=== PATIENT | female | born 1970 | race Caucasian/White ===

== ENCOUNTER 2017-03-30 14:24 | Emergency (ER) | payer MEDICAID ==
--- NOTE | 2017-03-30 14:37 | Emergency Department Record ---
History of Present Illness - General Chief Complaint: Knee injury Stated Complaint: RT KNEE INJURY Time Seen by Provider: 03/30/17 14:31 Source: Patient, Old records reviewed Limitations: No limitations - History of Present Illness Initial Comments: 46 yo female presents with a right knee njury and right leg swelling. The injury occurred yesterday at a softball game. She was running home and the knee gave out on her. She has pain and swelling. She is weight bearing but with pain. She has prior history of bilateral knee surgery. No history of DVT. MD Complaint: Knee injury -: Days(s) (1) Injury: Knee: Right Type of Injury: Unknown Place: Other (softball field) Improves With: Immobilization Worsens With: Movement, Palpation Context: Running Associated Symptoms: Swelling, Able to partially bear weight - Related Data Previous Rx's Medication Instructions Recorded Hydrocodone/Acetaminophen [Osborn 1 each PO Q8H PRN #15 tablet 03/30/17 5-325 Tablet] Allergies Allergy/AdvReac Type Severity Reaction Status Date / Time Pyrazoles Allergy Unknown HYPERSENSIT Verified 03/30/17 14:41 IVITY Salicylates * Allergy Unknown HYPERSENSIT Verified 03/30/17 14:41 IVITY aspirin AdvReac Unknown NAUSEA Verified 03/30/17 14:41 Review of Systems Constitutional: Denies: Chills, Fever, Malaise, Weakness Eyes: Denies: Eye discharge ENT: Denies: Congestion, Dental pain, Throat pain Respiratory: Denies: Cough, Dyspnea, Hemoptysis, Stridor, Wheezes Cardiovascular: Denies: Chest pain, Palpitations, Syncope Endocrine: Denies: Fatigue Gastrointestinal: Denies: Abdominal pain, Diarrhea, Nausea, Vomiting Genitourinary: Denies: Dysuria, Urgency Musculoskeletal: Reports: As per HPI, Arthralgia Skin: Reports: As per HPI, Bruising Neurological: Denies: Confusion, Headache, Numbness, Tingling, Tremors, Vertigo , Weakness Psychiatric: Denies: Anxiety Hematological/Lymphatic: Denies: Blood Clots, Easy bleeding, Easy bruising, Swollen glands Physical Exam - General General Appearance: Alert, Oriented x3, Cooperative, No acute distress Limitations: No limitations - Head Head exam: Atraumatic, Normal inspection - Eye Eye exam: Normal appearance. negative: Conjunctival injection, Periorbital swelling - ENT ENT exam: Normal exam, Mucous membranes moist Ear exam: Normal external inspection Nasal Exam: Normal inspection - Neck Neck exam: Normal inspection - Cardiovascular Cardiovascular Exam: Regular rate, Normal rhythm, Normal heart sounds Peripheral Pulses: 2+: Dorsalis Pedis (R) - GI/Abdominal GI/Abdominal exam: Soft. negative: Tenderness - Rectal Rectal exam: Deferred - exam: Deferred - Extremities Extremities exam: Joint swelling, Normal capillary refill, Tenderness. negative : Normal inspection, Full ROM Image of Full Body: 1 - mild knee swelling, tender medial and posterior, bruising anterior and distal lower leg, intact sensation and pulses - Back Back exam: Reports: Normal inspection. Denies: CVA tenderness (R), CVA tenderness (L) - Neurological Neurological exam: Alert, Oriented X3. negative: Motor sensory deficit - Psychiatric Psychiatric exam: Normal affect, Normal mood - Skin Skin exam: Other (bruising) Course - Reevaluation(s) Reevaluation #1: The XR and the venous doppler were reviewed My prelim read is no acute bony injury, doppler is negative for DVT She has crutches at home She will be given a knee immobilzer for support and comfort She has an orthopedist she has seen recent We discussed home care, follow up and further testing if pain continues 03/30/17 16:04 Reevaluation #2: Final read no fracture, No DVT The patient was DC'd home with knee immobilizer and she has crutches She was given home care instructions and recommended to follow up with her ortho if calix persists next week 03/30/17 16:27 Disposition Disposition: Discharge Clinical Impression: Knee sprain Qualifiers: Encounter type: sequela Involved ligament of knee: unspecified ligament Laterality: right Qualified Code(s): S83.91XS - Sprain of unspecified site of right knee, sequela Disposition: Home, Self-Care Condition: (1) Good Instructions: Knee Sprain (ED) Additional Instructions: Ice and elevate Use the crutches and splint for support and comfort. Do not drive with the splint on you leg. Call your doctor for close follow up of your injury If pain continues you may need further testing such as MRI or referral if the pain continues to rule out ligament/cartilage injury Prescriptions: Hydrocodone/Acetaminophen [Osborn 5-325 Tablet] 1 each PO Q8H PRN #15 tablet PRN Reason: Pain - General Forms: Patient Portal Access Time of Disposition: 16:06 Quality - Quality Measures Quality Measures: N/A - Blood Pressure Screening Does Patient Have Any of the Following: No Blood Pressure Classification: Normal BP Reading Systolic Measurement: 109 Diastolic Measurement: 61 Screening for High Blood Pressure: < Normal BP, F/U Not Required > [G8783]
[2017-03-30] MEDS ORDERED: IBUPROFEN 600 MG TABLET PO ONE (14:47)
--- NOTE | 2017-03-31 07:22 | US VENOUS DOPPLER REPORT ---
EXAM: EMERGENCY RIGHT LOWER EXTREMITY VENOUS DOPPLER ULTRASOUND HISTORY: SWELLING AND POPLITEAL PAIN, FELL LAST NIGHT WHILE PLAYING SOFTBALL WITH RIGHT LEG PAIN AND SWELLING. TECHNIQUE: Venous Doppler ultrasound of the right lower extremity was performed utilizing color flow and spectral analysis Doppler. Venous anatomy of the thigh and calf was supplemented with compression and flow augmentation maneuvers. Comparison: No prior venous Doppler ultrasound of the right lower extremity with which to compare. FINDINGS: The venous Doppler ultrasound of the right lower extremity is negative. No DVT evident. Flow was seen throughout the venous anatomy from the inguinal region down through the calf. Flow augmentation and compression was evident in the venous anatomy of the thigh and popliteal region as well. IMPRESSION: NEGATIVE VENOUS DOPPLER ULTRASOUND OF THE RIGHT LOWER EXTREMITY WITH NO DVT EVIDENT. JOB NUMBER: [id number] MTDD
--- NOTE | 2017-03-31 07:25 | RADIOLOGY REPORT ---
EXAM: RIGHT KNEE HISTORY: PATIENT FELL WITH RIGHT KNEE PAIN. TECHNIQUE: Four views of the right knee were obtained. Comparison: No prior right knee study, but comparison is made with the right lower leg study which partially includes the right knee dated 04/15/14. Encounter: Initial. FINDINGS: No definite fracture or dislocation of the right knee identified. There may be a joint effusion present, however. IMPRESSION: 1. POSSIBLE JOINT EFFUSION. 2. NO FRACTURE OF THE RIGHT KNEE IDENTIFIED. JOB NUMBER: [id number] [facility]
== END 2017-03-30 16:23 | disposition home or self-care (01) ==
LOC: ER 14:24
DX: S83.91XA Sprain of unspecified site of right knee, initial encounter (principal); M25.561 Pain in right knee; X50.9XXA Other and unspecified overexertion or strenuous movements or postures, initial encounter; Y93.64 Activity, baseball
CPT/HCPCS: 99283; 99284

== ENCOUNTER 2019-07-06 12:16 | Emergency (ER) | payer MEDICAID ==
[2019-07-06] MEDS ORDERED: ASPIRIN 81 MG CHEWABLE TABLET PO ONE (12:37)
[2019-07-06] MEDS ORDERED: AL HYDROX/MAG HYDROX 30ML UD PO ONE (12:38)
[2019-07-06] MEDS: NITROGLYCERIN 0.4MG SL TABLET #25 BTL SL PRN ×2 (12:46→12:52)
[2019-07-06 12:56] LABS: ABSOLUTE NEUTROPHIL COUNT 7.15; BASO % 0.2 % (0-6); EOS % 0.8 % (0-6); GRAN % 69.8 % (47-80); HEMATOCRIT 47.6 % (35.0-47.0); HEMOGLOBIN 16.4 gm/dl (11.6-16.0); LYMPH % 22.8 % (16-45); MEAN CELL VOLUME 92.6 fl (81-97); MEAN CORPUSCULAR HEMOGLOBIN 31.9 pg (27-33); MEAN CORPUSCULAR HGB CONC 34.5 g/dl (32-36); MEAN PLATELET VOLUME 11.3 fl (7.4-10.4); MONO % 6.4 % (0-9); PLATELET COUNT 195 K/uL (130-400); RED BLOOD COUNT 5.14 M/uL (3.80-5.40); WHITE BLOOD COUNT W/O DIFF 10.2 K/uL (4.2-12.2)
--- NOTE | 2019-07-06 13:05 | Emergency Department Record ---
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 it is squeezing 01/16. she has never had anything like this. she has nausea but no sob and no radiation. MD Complaint: Chest pain Onset/Timin -: Hour(s) Onset: During rest Pain Location: Epigastric Severity scale (1-10): 7 Quality: Heaviness Consistency: Constant Improves With: Nothing Worsens With: Nothing Anginal Symptoms: Nausea Treatments Prior to Arrival: None - Related Data Allergies Allergy/AdvReac Type Severity Reaction Status Date / Time Pyrazoles Allergy Unknown HYPERSENSIT Verified 03/30/17 14:41 IVITY Salicylates * Allergy Unknown HYPERSENSIT Verified 03/30/17 14:41 IVITY aspirin AdvReac Unknown NAUSEA Verified 03/30/17 14:41 Travel Screening - Travel/Exposure Within Last 30 Days Have you traveled within the last 30 days?: No Review of Systems Reviewed: No additional complaints except as noted below Constitutional: Reports: As per HPI. Denies: Chills, Fever, Malaise, Night sweats, Weakness, Weight change Eyes: Reports: As per HPI. Denies: Eye discharge, Eye pain, Photophobia, Vision change ENT: Reports: As per HPI. Denies: Congestion, Dental pain, Ear pain, Epistaxis, Hearing loss, Throat pain Respiratory: Reports: As per HPI. Denies: Cough, Dyspnea, Hemoptysis, Stridor, Wheezes Cardiovascular: Reports: As per HPI, Chest pain. Denies: Arrhythmia, Dyspnea on exertion, Edema, Murmurs, Orthopnea, Palpitations, Paroxysmal nocturnal dyspnea, Rheumatic Fever, Syncope Endocrine: Reports: As per HPI. Denies: Fatigue, Heat or cold intolerance, Polydipsia, Polyuria Gastrointestinal: Reports: As per HPI, Nausea. Denies: Abdominal pain, Constipation, Diarrhea, Hematemesis, Hematochezia, Melena, Vomiting Genitourinary: Reports: As per HPI. Denies: Abnormal menses, Discharge, Dyspareunia, Dysuria, Frequency, Hematuria, Incontinence, Retention, Urgency Musculoskeletal: Reports: As per HPI. Denies: Arthralgia, Back pain, Gout, Sarahy int swelling, Myalgia, Neck pain Skin: Reports: As per HPI. Denies: Bruising, Change in color, Change in hair/nails, Lesions, Pruritus, Rash Neurological: Reports: As per HPI. Denies: Abnormal gait, Confusion, Headache, Numbness, Paresthesias, Seizure, Tingling, Tremors, Vertigo, Weakness Psychiatric: Reports: As per HPI. Denies: Anxiety, Auditory hallucinations, Depression, Homicidal thoughts, Suicidal thoughts, Visual hallucinations Hematological/Lymphatic: Reports: As per HPI. Denies: Anemia, Blood Clots, Easy bleeding, Easy bruising, Swollen glands Past Medical History - SOCIAL HISTORY Smoking Status: Current every day smoker - RESPIRATORY Hx Respiratory Disorders: No - CARDIOVASCULAR Hx Cardio Disorders: No - NEURO Hx Neuro Disorders: No - GI Hx GI Disorders: No - Hx Genitourinary Disorders: No - ENDOCRINE Hx Endocrine Disorders: No - MUSCULOSKELETAL Hx Musculoskeletal Disorders: Yes Hx Arthritis: Yes - PSYCH Hx Psych Problems: Yes Hx Anxiety: Yes Hx Depression: Yes - HEMATOLOGY/ONCOLOGY Hx Hematology/Oncology Disorders: No Family Medical History Any Significant Family History?: Yes Hx Cancer: Father, Mother Hx Dementia: Mother Hx Depression: Mother Hx Kidney Disease: Mother Physical Exam - General General Appearance: Alert, Oriented x3, Cooperative, Mild distress - Head Head exam: Normal inspection - Eye Eye exam: Normal appearance, PERRL, EOMI Pupils: Normal accommodation - ENT ENT exam: Normal exam, Mucous membranes moist, Normal external ear exam, Normal orophraynx Ear exam: Normal external inspection. negative: External canal tenderness Nasal Exam: Normal inspection. negative: Discharge, Sinus tenderness Mouth exam: Normal external inspection, Tongue normal Teeth exam: Normal inspection. negative: Dental caries Throat exam: Normal inspection. negative: Tonsillar erythema, Tonsillar exudate - Neck Neck exam: Normal inspection, Full ROM. negative: Tenderness - Respiratory Respiratory exam: Normal lung sounds bilaterally. negative: Respiratory distress - Cardiovascular Cardiovascular Exam: Regular rate, Normal rhythm, Normal heart sounds - GI/Abdominal GI/Abdominal exam: Soft, Normal bowel sounds. negative: Tenderness - Rectal Rectal exam: Deferred - exam: Deferred - Extremities Extremities exam: Normal inspection, Full ROM, Normal capillary refill. negative: Tenderness - Back Back exam: Reports: Normal inspection, Full ROM. Denies: Muscle spasm, Rash noted, Tenderness - Neurological Neurological exam: Alert, CN II-XII intact, Normal gait, Oriented X3 - Psychiatric Psychiatric exam: Normal affect, Normal mood - Skin Skin exam: Dry, Intact, Normal color, Warm Course Vital Signs 07/06/19 12:18 Temperature 97.7 F Pulse Rate 79 Respiratory 20 Rate Blood Pressure 106/78 Pulse Ox 100 - Reevaluation(s) Reevaluation #1: 07/06/19 17:33 pts 2nd enzyme is negative. pressure improved. Medical Decision Making - Lab Data Result diagrams: 07/06/19 12:25 07/06/19 12:25 Lab Results 07/06/19 Range/Units 12:25 WBC 10.2 (4.2-12.2) K/uL RBC 5.14 (3.80-5.40) M/uL Hgb 16.4 H (11.6-16.0) gm/dl Hct 47.6 H (35.0-47.0) % MCV 92.6 (81-97) fl MCH 31.9 (27-33) pg MCHC 34.5 (32-36) g/dl RDW 14.0 (11.5-14.5) % Plt Count 195 (130-400) K/uL MPV 11.3 H (7.4-10.4) fl Gran % 69.8 (47-80) % Lymphocytes % 22.8 (16-45) % Monocytes % 6.4 (0-9) % Eosinophils % 0.8 (0-6) % Basophils % 0.2 (0-6) % Absolute Neutrophils 7.15 Disposition Disposition: Discharge Clinical Impression: Chest pain Qualifiers: Chest pain type: unspecified Qualified Code(s): R07.9 - Chest pain, unspecified Disposition: Home, Self-Care Condition: (1) Good Instructions: Chest Pain (ED) Additional Instructions: follow up with family doctor this week and 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 return sooner if worse. take aspirin 81mg a day. Forms: Patient Portal Access Quality - Quality Measures Quality Measures: N/A - Blood Pressure Screening Does Patient Have Any of the Following: No Blood Pressure Classification: Normal BP Reading Systolic Measurement: 106 Diastolic Measurement: 78 Screening for High Blood Pressure: < Normal BP, F/U Not Required > [G8783]
[2019-07-06 13:08] LABS: BLOOD UREA NITROGEN 8 mg/dL (6-20); CREATININE 0.6 mg/dL (0.5-0.9); EST GLOMERULAR FILTRATION RATE > 60 mL/min
[2019-07-06 13:10] LABS: GLUCOSE,RANDOM 99 mg/dL (74-109)
[2019-07-06 13:13] LABS: ALB/GLOB RATIO 1.9 (1.1-1.8); ALBUMIN 4.6 g/dL (4.0-5.0); ALKALINE PHOSPHATASE 52 U/L (35-104); ALT/SGPT 126 U/L (<33); AST/SGOT 194 U/L (10.0-35.0); CREATINE PHOSPHOKINASE 40 U/L (26-192)
[2019-07-06 13:15] LABS: CKMB < 1.0 ng/mL (<3.77)
--- NOTE | 2019-07-06 14:09 | RADIOLOGY REPORT ---
EXAMINATION: Two View Chest Radiographs EXAM DATE: 07/06/2019 1:56 PM TECHNIQUE: Frontal and lateral views INDICATION: Acute chest pain COMPARISON: None ENCOUNTER: Not applicable FINDINGS: The heart, mediastinum, and pulmonary vasculature are normal. Pulmonary hyperinflation. No lung conso lidation or pleural effusions are present. Jewelry noted. IMPRESSION: 1. Pulmonary hyperinflation is nonspecific. 2. No evidence of acute process Dictated by: JORI PORTER MD on 07/06/2019 2:05 PM. .
[2019-07-06] MEDS ORDERED: LORAZEPAM 2 MG/ML VIAL IV ONE (14:56)
[2019-07-06] MEDS ORDERED: 0.9 % SODIUM CHLORIDE 1,000 ML BAG IV ONE (17:00)
[2019-07-07 20:57] LABS: HEP A AB IGM Nonreactive (Nonreactive); HEPATITIS B CORE ANTIBODY,IGM Nonreactive (Nonreactive); HEPATITIS B SURFACE ANTIGEN Nonreactive (Nonreactive); HEPATITIS C VIRUS ANTIBODY Nonreactive (Nonreactive)
== END 2019-07-06 18:02 | disposition home or self-care (01) ==
LOC: ER 12:16
DX: R07.9 Chest pain, unspecified (principal); R11.0 Nausea; F17.210 Nicotine dependence, cigarettes, uncomplicated; R10.13 Epigastric pain
CPT/HCPCS: 99284 ×2; 96374; 82550; 83690; 85025; 82553; 80053; 84484; 85379; 71046; 93005; 93010; J2060; J7030

== ENCOUNTER 2019-08-15 11:09 | Day surgery (SDC) | payer MEDICAID ==
[2019-08-15] MEDS ORDERED: PROPOFOL 10 MG/ML VIAL IV ONE (11:10)
[2019-08-15] MEDS ORDERED: LIDOCAINE 2% MDV (20MG/ML) 20ML VIAL IV ONE (11:10)
[2019-08-15] MEDS ORDERED: FENTANYL PF 100MCG/2ML VIAL IV ONE (11:10)
--- NOTE | 2019-08-23 10:51 | Operative Note ---
OPERATION: ESOPHAGOGASTRODUODENOSCOPY with biopsy. PREOPERATIVE DIAGNOSIS: Noncardiac chest pain. POSTOPERATIVE DIAGNOSIS: Gastritis and GERD with irregular Z line and columnar islands. Rule out short-segment Garcia's. PROCEDURE: After informed consent was obtained from the patient, she was placed in the left lateral decubitus position in the endoscopy suite, sedated and monitored by the department of anesthesia. Once sedated, a well-lubricated SIM680 gastroscope was placed in the posterior oropharynx under direct visualization and passed to the proximal, mid, and distal esophagus. The GE junction and distal esophagus demonstrated several columnar islands. No ulcers, erosions, strictures, varices, or mass lesions were seen. The gastric body demonstrated normal distensibility, normal rugal folds. There were flecks of heme and mild patchy erythema in the antrum. The pylorus, duodenal bulb, and sweep were unremarkable. J-turn views of the proximal stomach were unrevealing. The endoscope was then straightened. Gastric biopsies obtained. GE junction biopsies were obtained. The endoscope was removed from the patient with no new findings noted. RECOMMENDATIONS: I would suggest the patient resume her medications and diet. I did suggest she not smoke anymore but she did not think this would be possible. As always, thank you for allowing me to participate in the healthcare of your patients. EDDIE
== END 2019-08-15 12:45 | disposition home or self-care (01) ==
LOC: HOP 11:09
PROVIDERS: ATTEND Internal Medicine Gastroenterology
DX: K31.89 Other diseases of stomach and duodenum (principal); K29.50 Unspecified chronic gastritis without bleeding; F41.8 Other specified anxiety disorders
CPT/HCPCS: 81025